=== PATIENT | female | born 1945 | race Caucasian/White ===

== ENCOUNTER 2017-11-12 11:26 | Day surgery (SDC) | payer MEDICARE, OTHER ==
[2017-11-10 14:25] LABS: BASOPHILS # (AUTO) 0.1 X10'3 (0-0.2); BASOPHILS % (AUTO) 0.8 % (0-1); EOSINOPHILS # (AUTO) 0.3 X10'3 (0-0.9); EOSINOPHILS % (AUTO) 4.3 % (0-6); HEMATOCRIT 37.7 % (35.0-45.0); HEMOGLOBIN 12.7 g/dl (12.0-16.0); LYMPHOCYTES # (AUTO) 1.4 X10'3 (1.1-4.8); LYMPHOCYTES % (AUTO) 19.9 % (21-51); MEAN CORPUSCULAR HEMOGLOBIN 29.5 PG (27.0-31.0); MEAN CORPUSCULAR HGB CONC 33.8 % (33.0-36.5); MEAN CORPUSCULAR VOLUME 87.4 FL (78-98); MEAN PLATELET VOLUME 8.6 FL (7.4-10.4); MONOCYTES # (AUTO) 0.7 X10'3 (0-0.9); MONOCYTES % (AUTO) 9.4 % (2-12); NEUTROPHILS # (AUTO) 4.7 X10'3 (1.8-7.7); NEUTROPHILS % (AUTO) 65.6 % (42-75); PLATELET COUNT 207 X10'3 (140-440); RED BLOOD COUNT 4.31 X10'6 (4.20-5.60); RED CELL DISTRIBUTION WIDTH 15.9 % (11.5-14.5); WHITE BLOOD COUNT 7.1 X10'3 (4.5-11.0)
[2017-11-10 14:36] LABS: INR 0.9 INR; PARTIAL THROMBOPLASTIN TIME 21 SECONDS (22-32); PROTHROMBIN TIME 9.6 SECONDS (9.0-12.0)
[2017-11-10 14:46] LABS: ALANINE AMINOTRANSFERASE 18 U/L (12-78); ALBUMIN 3.7 G/DL (3.4-5.0); ALBUMIN/GLOBULIN RATIO 1.1 (1.1-1.5); ALKALINE PHOSPHATASE 85 IU/L (46-116); ANION GAP 10 (8-16); ASPARTATE AMINO TRANSFERASE 19 U/L (10-37); BILIRUBIN,TOTAL 0.3 MG/DL (0.1-1.0); BLOOD UREA NITROGEN 19 MG/DL (7-18); BUN/CREATININE RATIO 26.4 (6.6-38.0); CALCIUM 10.2 MG/DL (8.5-10.1); CHLORIDE 104 MMOL/L (99-107); CREATININE 0.72 MG/DL (0.40-0.90); GLUCOSE 99 MG/DL (70-104); POTASSIUM 3.8 MMOL/L (3.5-5.1); SODIUM 141 MMOL/L (135-145); TOTAL CARBON DIOXIDE 26.6 MMOL/L (24-32); TOTAL PROTEIN 7.2 G/DL (6.4-8.2); eGFR 80 ML/MIN
[~2017-11-12] VITALS: Ht 165.1 cm; Wt 83.0 kg
[2017-11-12] VITALS (11 sets, daily range): BP systolic 110–174; BP diastolic 56–91
[~2017-11-12 11:26] MED LIST: ASPI-41 PO; SIMV20TA5 PO; TRIA1TAB3 PO
[2017-11-12] MEDS ORDERED: diphenhydrAMINE 25mg capsule PO PRN (11:45)
[2017-11-12] MEDS ORDERED: LORazepam 0.5 MG tablet PO PRN (11:45)
[2017-11-12] MEDS ORDERED: nitroGLYCERIN 0.4mg SUBLingual tab SL PRN (11:45)
[2017-11-12] MEDS ORDERED: normal saline 1000ml 1,000 ML IV SCH ×2 (11:45→15:05)
[2017-11-12] MEDS ORDERED: ACET-2119 PO (12:23)
[2017-11-12] MEDS ORDERED: ALEN70TA48 PO (12:23)
[2017-11-12] MEDS ORDERED: TRIA1CAP2 PO (12:23)
[2017-11-12] MEDS ORDERED: AMLO5TAB PO (12:23)
[2017-11-12] MEDS ORDERED: POTA-82 PO (12:23)
[2017-11-12] MEDS ORDERED: METO25TA6 PO (12:23)
[2017-11-12] MEDS ORDERED: NAPR220T67 PO (12:23)
[2017-11-12] MEDS ORDERED: ERGO500028 PO (12:23)
[2017-11-12] MEDS ORDERED: FURO-150 PO (12:23)
[2017-11-12] MEDS ORDERED: FISH12002 PO (12:23)
[2017-11-12] MEDS ORDERED: FLAX100031 PO (12:23)
[2017-11-12] MEDS ORDERED: LOSA50TA37 PO (12:23)
[2017-11-12] MEDS ORDERED: pneumococcal 23-VAL P-sac vacc 25 mcg/0.5ml vial IMVAC ONE (12:45)
[2017-11-12] MEDS ORDERED: iohexol 350MG/ML 100ml bottle IV ONE (13:04)
[2017-11-12] MEDS ORDERED: iohexol 350 MG/ML 50ML vial IV ONE ×2 (13:04→14:19)
[2017-11-12] MEDS ORDERED: LIDOcaine 1% 30ml preserv. free vial ONE (13:05)
[2017-11-12] MEDS ORDERED: LIDOcaine 1% w/EPI 1:100,000 30ml vial (MDV) ONE (13:38)
[2017-11-12] MEDS ORDERED: midazolam 2 mg/2 ml injection ONE (13:38)
[2017-11-12] MEDS ORDERED: fentaNYL/PF 50MCG/1 ML 2ML syringe ONE (13:38)
[2017-11-12] MEDS ORDERED: ondansetron/PF 4mg/2ml inj IV PRN (15:05)
[2017-11-12] MEDS ORDERED: HYDROcodone/acetaminophen 10/325mg tab PO PRN (15:05)
[2017-11-12] MEDS ORDERED: OXAZEpam 15mg capsule PO PRN (15:05)
[2017-11-12] MEDS ORDERED: HYDROcodone/acetaminophen 5mg/325mg tablet PO PRN (15:05)
[2017-11-12] MEDS ORDERED: proCHLORperazine 10 MG/2 ml inj IV PRN (15:05)
== END 2017-11-12 20:30 | disposition home or self-care (01) ==
LOC: SSTAY O 11:26
PROVIDERS: ATTEND Internal Medicine Cardiovascular Disease
DX: I25.10 Atherosclerotic heart disease of native coronary artery without angina pectoris (principal); I70.0 Atherosclerosis of aorta; I70.201 Unspecified atherosclerosis of native arteries of extremities, right leg; I10 Essential (primary) hypertension; J44.9 Chronic obstructive pulmonary disease, unspecified; Z90.2 Acquired absence of lung [part of]; E78.5 Hyperlipidemia, unspecified; Z79.01 Long term (current) use of anticoagulants; Z87.891 Personal history of nicotine dependence; Z85.118 Personal history of other malignant neoplasm of bronchus and lung; Z98.890 Other specified postprocedural states; Z87.09 Personal history of other diseases of the respiratory system
CPT/HCPCS: 36415; 71046; 80053; 85025; 85610; 85730; 93458; 93567; 99152; 99153; A6257; C1760; C1769; J1644; J2250; J3010; J3490; J7030; Q0163; Q9967

== ENCOUNTER 2022-07-16 10:03 | Outpatient (CLI) | payer MEDICARE ==
[~2022-07-16 10:03] MED LIST changes: +ACET-2119 PO; +ALEN70TA60 PO; +AMLO5TAB PO; +ERGO500093 PO; +FISH12002 PO; +FLAX100031 PO; +FURO-150 PO; +LOP25T PO; +LOSA50TA64 PO; +NAPR220T67 PO; +POTA-82 PO; +SIMV-42 PO; -SIMV20TA5 PO; +TRIA1CAP2 PO; -TRIA1TAB3 PO
[2022-07-16 10:51] LABS: ALBUMIN 3.1 G/DL (3.4-5.0); ANION GAP 7 (8-16); BLOOD UREA NITROGEN 19 MG/DL (7-18); BUN/CREATININE RATIO 27.9 (6.6-38.0); CHLORIDE 106 MMOL/L (99-107); CREATININE 0.68 MG/DL (0.40-0.90); GLUCOSE 114 MG/DL (70-104); POTASSIUM 3.9 MMOL/L (3.5-5.1); SODIUM 141 MMOL/L (135-145); eGFR 84 ML/MIN
[2022-07-16] MEDS ORDERED: iohexol 350MG/ML 100ml bottle IV ONE (10:53)
== END 2022-07-16 23:59 | disposition home or self-care (01) ==
LOC: RAD 10:03
PROVIDERS: ATTEND Internal Medicine Cardiovascular Disease
DX: J43.9 Emphysema, unspecified (principal); I48.0 Paroxysmal atrial fibrillation; I70.0 Atherosclerosis of aorta; Z98.84 Bariatric surgery status; Z90.2 Acquired absence of lung [part of]; Z95.818 Presence of other cardiac implants and grafts
CPT/HCPCS: 36415; 75572; 80048; J3490; Q9967